=== PATIENT | male | born 1995 | race African-American/Black ===

== ENCOUNTER 2017-05-09 09:34 | Emergency (ER) | payer SELFPAY ==
[~2017-05-09 09:34] MED LIST: ZOVIRAX200 M1 PO
[2017-05-09] MEDS ORDERED: NO MEDICATIONS (09:38)
[2017-05-09 10:32] LABS: URINE SOURCE CLEAN CATCH
[2017-05-09 10:41] LABS: URINE APPEARANCE HAZY; URINE BILIRUBIN NEG (NEG); URINE BLOOD NEG (NEG); URINE COLOR YELLOW; URINE GLUCOSE NEG (NORM); URINE KETONE NEG (NEG); URINE LEUKOCYTE ESTERASE TRACE (NEG); URINE NITRATE NEG (NEG); URINE PH 5.5 (5-8); URINE PROTEIN NEG (NEG); URINE SPECIFIC GRAVITY >=1.030 (1.003-1.035); URINE UROBILINOGEN 0.2 MG/DL (NORM)
[2017-05-09 10:45] LABS: MICRO INDICATED? YES
[2017-05-09 10:46] LABS: CULTURE INDICATED? YES; URINE BACTERIA 4+ (NEG)
[2017-05-09 10:47] LABS: URINE MUCUS PRESENT; URINE SQUAMOUS EPITHELIAL CELL MODERATE /[HPF]; URINE TRANSITIONAL EPI CELLS OCCAS /[HPF]
== END 2017-05-09 11:14 | disposition home or self-care (01) ==
LOC: SED 09:34
PROVIDERS: Emergency Medicine
DX: N34.2 Other urethritis (principal)
CPT/HCPCS: 81003; 87086; 87253; 99283